=== PATIENT | male | born 1950 | race Caucasian/White ===

== ENCOUNTER → 2021-05-09 | Emergency (ER) | payer MEDICARE, MEDICAID ==
[~2021-05-09] VITALS: Ht 144.8 cm; Wt 46.8 kg
[~2021-05-09] MED LIST: ACET-1995 PO; ALBU2.5V13 NEB; ASCO-100 PO; CALC-157 PO; CEPH250T PO; CRAN450T4 PO; CefTRIAXone/D5W-Rocephin 1gm 50 ML IV ONE; DIPH25TA62 PO; DOCU250C96 PO; ERGO400C PO; ERYT1OIN6 RIGHTEYE; LACT1CAP65 PO; LISI2.5T14 PO; LORA-657 PO; MELA5TAB21 PO; METH1TAB32 PO; MULT-1085 PO; dextrose 5%-1/2 normal saline 1,000 ML IV ONE; normal saline 1000ML IV soln IVB ONE
[2021-05-09 13:15] LABS: BASOPHILS % (AUTO) 0.2 % (0-1); EOSINOPHILS # (AUTO) 0.1 X10'3 (0-0.9); EOSINOPHILS % (AUTO) 1.2 % (0-6); HEMATOCRIT 44.2 % (42.0-52.0); HEMOGLOBIN 14.6 g/dl (14.0-17.9); LYMPHOCYTES # (AUTO) 1.3 X10'3 (1.1-4.8); LYMPHOCYTES % (AUTO) 15.9 % (21-51); MEAN CORPUSCULAR HEMOGLOBIN 31.3 PG (27.0-31.0); MEAN CORPUSCULAR HGB CONC 33.1 g/dL (33.0-36.5); MEAN CORPUSCULAR VOLUME 94.5 FL (78-98); MEAN PLATELET VOLUME 7.5 FL (7.4-10.4); MONOCYTES # (AUTO) 0.7 X10'3 (0-0.9); NEUTROPHILS % (AUTO) 73.7 % (42-75); PLATELET COUNT 195 X10'3 (140-440); RED BLOOD COUNT 4.68 X10'6 (4.70-6.10); RED CELL DISTRIBUTION WIDTH 12.9 % (11.5-14.5); WHITE BLOOD COUNT 8.1 X10'3 (4.5-11.0)
[2021-05-09 13:35] LABS: ALANINE AMINOTRANSFERASE 28 U/L (12-78); ALBUMIN 3.5 G/DL (3.4-5.0); ALKALINE PHOSPHATASE 72 IU/L (46-116); ANION GAP 9 (8-16); ASPARTATE AMINO TRANSFERASE 24 U/L (10-37); BILIRUBIN,TOTAL 0.5 MG/DL (0.1-1.0); BLOOD UREA NITROGEN 42 MG/DL (7-18); BUN/CREATININE RATIO 29.2 (5.4-32.0); CALCIUM 9.6 MG/DL (8.5-10.1); CHLORIDE 114 MMOL/L (99-107); CREATININE 1.44 MG/DL (0.60-1.10); GLUCOSE 107 MG/DL (70-104); POTASSIUM 3.9 MMOL/L (3.5-5.1); SODIUM 150 MMOL/L (135-145); TOTAL CARBON DIOXIDE 27.4 MMOL/L (24-32); eGFR 49 ML/MIN
--- NOTE | 2021-05-09 15:02 | NUR ---
minimal urine output. suprapubic catheter adjusted, no urine outflow. 1L NS bolus given, still no urine output. bladder scan notes 67ml. one drop of cloudy urine noted. alejandra jeffers aware.
[2021-05-09 16:31] LABS: CLARITY,URINE CLOUDY (Clear); COLOR,URINE YELLOW (Yellow); GLUCOSE, URINE NEGATIVE (Neg); KETONES,URINE NEGATIVE (Neg); LEUKOCYTE ESTERASE ,URINE LARGE (Neg); NITRITES, URINE POSITIVE (Neg); OCCULT BLOOD,URINE MODERATE (Neg); PROTEIN,URINE 100 mg/dl (Neg); UROBILINOGEN,URINE 0.2 E.U/dL (0.2-1.0)
[2021-05-09 16:33] LABS: UA COLLECTION TYPE SUPRAPUBIC CATH
[2021-05-09 16:39] LABS: BACTERIA,URINE 4+ /HPF (Neg); SQUAMOUS EPITHELIAL CELL,UR MODERATE /LPF (FEW)
[2021-05-09 17:26] VITALS: BP 96/62
== END | disposition home or self-care (01) ==
LOC: ER 11:38
DX: N39.0 Urinary tract infection, site not specified (principal); R40.4 Transient alteration of awareness; Z87.440 Personal history of urinary (tract) infections; Z79.2 Long term (current) use of antibiotics; Z79.899 Other long term (current) drug therapy
CPT/HCPCS: 36415; 70450; 71045; 80053; 81001; 85025; 87077; 87088; 87186; 93005; 96361; 96365; 99285; J0696; J7030

== ENCOUNTER 2021-08-29 10:14 | Emergency (ER) | payer MEDICARE, MEDICAID ==
[~2021-08-29] VITALS: Ht 144.8 cm; Wt 45.0 kg
[~2021-08-29 10:14] MED LIST changes: +CEFD300C3 PO; -CEPH250T PO; -CefTRIAXone/D5W-Rocephin 1gm 50 ML IV ONE; -LORA-657 PO; +LORA10TA7 PO; +MELA5CAP PO; -MELA5TAB21 PO; -dextrose 5%-1/2 normal saline 1,000 ML IV ONE; -normal saline 1000ML IV soln IVB ONE
[2021-08-29] MEDS ORDERED: normal saline 1000ML IV soln IVB ONE (11:20)
[2021-08-29 11:34] LABS: BASOPHILS % (AUTO) 0.3 % (0-1); EOSINOPHILS # (AUTO) 0.2 X10'3 (0-0.9); EOSINOPHILS % (AUTO) 2.4 % (0-6); HEMATOCRIT 42.6 % (42.0-52.0); HEMOGLOBIN 14.5 g/dl (14.0-17.9); LYMPHOCYTES # (AUTO) 1.4 X10'3 (1.1-4.8); LYMPHOCYTES % (AUTO) 20.1 % (21-51); MEAN CORPUSCULAR HEMOGLOBIN 31.4 PG (27.0-31.0); MEAN CORPUSCULAR VOLUME 92.4 FL (78-98); MEAN PLATELET VOLUME 7.2 FL (7.4-10.4); MONOCYTES # (AUTO) 0.5 X10'3 (0-0.9); MONOCYTES % (AUTO) 7.7 % (2-12); NEUTROPHILS # (AUTO) 4.8 X10'3 (1.8-7.7); NEUTROPHILS % (AUTO) 69.5 % (42-75); PLATELET COUNT 317 X10'3 (140-440); RED BLOOD COUNT 4.61 X10'6 (4.70-6.10); RED CELL DISTRIBUTION WIDTH 13.2 % (11.5-14.5); WHITE BLOOD COUNT 6.9 X10'3 (4.5-11.0)
[2021-08-29 11:47] LABS: PARTIAL THROMBOPLASTIN TIME 25 SECONDS (22-32)
[2021-08-29 11:50] LABS: ALANINE AMINOTRANSFERASE 28 U/L (12-78); ALBUMIN 3.1 G/DL (3.4-5.0); ALBUMIN/GLOBULIN RATIO 0.7 (1.1-1.5); ALKALINE PHOSPHATASE 80 IU/L (46-116); ANION GAP 10 (8-16); ASPARTATE AMINO TRANSFERASE 16 U/L (10-37); BILIRUBIN,TOTAL 0.4 MG/DL (0.1-1.0); BLOOD UREA NITROGEN 52 MG/DL (7-18); BUN/CREATININE RATIO 27.8 (5.4-32.0); CALCIUM 10.6 MG/DL (8.5-10.1); CHLORIDE 108 MMOL/L (99-107); CREATININE 1.87 MG/DL (0.60-1.10); GLUCOSE 95 MG/DL (70-104); POTASSIUM 4.6 MMOL/L (3.5-5.1); SODIUM 148 MMOL/L (135-145); TOTAL CARBON DIOXIDE 30.2 MMOL/L (24-32); TOTAL PROTEIN 7.4 G/DL (6.4-8.2); eGFR 36 ML/MIN
[2021-08-29 11:59] LABS: MAGNESIUM 2.6 MG/DL (1.5-2.4)
[2021-08-29 13:10] LABS: C-REACTIVE PROTEIN 2.21 MG/DL (0.0-0.5); FERRITIN 207 NG/ML (26-388); LACTATE DEHYDROGENASE 241 U/L (85-227)
[2021-08-29 15:05] VITALS: BP 105/63
== END 2021-08-29 13:35 | disposition home or self-care (01) ==
LOC: ER 10:14
DX: G80.9 Cerebral palsy, unspecified (principal); Z20.822 Contact with and (suspected) exposure to COVID-19; R00.0 Tachycardia, unspecified; N18.9 Chronic kidney disease, unspecified; Z87.440 Personal history of urinary (tract) infections; Z79.2 Long term (current) use of antibiotics; Z79.899 Other long term (current) drug therapy
CPT/HCPCS: 36415; 71045; 80053; 82728; 83615; 83735; 83880; 84145; 84443; 84484; 85025; 85379; 85384; 85610; 85730; 86140; 87635; 93005; 96360; 99285; C9803; J7030

== ENCOUNTER 2022-02-05 12:50 | Outpatient (CLI) | payer MEDICARE, MEDICAID ==
[~2022-02-05 12:50] MED LIST changes: -CEFD300C3 PO
== END 2022-02-05 23:59 | disposition home or self-care (01) ==
LOC: CARD DIAG 12:50
PROVIDERS: ATTEND Internal Medicine Cardiovascular Disease
DX: I08.0 Rheumatic disorders of both mitral and aortic valves (principal); I11.9 Hypertensive heart disease without heart failure
CPT/HCPCS: 93306

== ENCOUNTER 2022-05-21 23:33 | Emergency (ER) | payer MEDICARE, MEDICAID ==
[~2022-05-21] VITALS: Ht 129.5 cm; Wt 42.4 kg
[2022-05-21 23:39] VITALS: BP 122/76
[2022-05-22 00:51] LABS: CLARITY,URINE CLOUDY (Clear); COLOR,URINE YELLOW (Yellow); GLUCOSE, URINE NEGATIVE (Neg); KETONES,URINE NEGATIVE (Neg); LEUKOCYTE ESTERASE ,URINE LARGE (Neg); NITRITES, URINE POSITIVE (Neg); OCCULT BLOOD,URINE LARGE (Neg); PH,URINE 6.5 (4.8-8.0); PROTEIN,URINE 100 mg/dl (Neg); UROBILINOGEN,URINE 0.2 E.U/dL (0.2-1.0)
[2022-05-22 00:56] LABS: UA COLLECTION TYPE NON-SPECIFIED
[2022-05-22 00:58] LABS: BACTERIA,URINE 2+ /HPF (Neg); MUCUS STRANDS NONE SEEN /LPF (Neg); RBC,URINE TNTC /HPF (0-2); SQUAMOUS EPITHELIAL CELL,UR NONE SEEN /LPF (FEW); WBC,URINE TNTC /HPF (0-4)
[2022-05-22 00:59] LABS: EOSINOPHILS # (AUTO) 0.2 X10'3 (0-0.9); HEMOGLOBIN 14.5 g/dl (14.0-17.9); LYMPHOCYTES # (AUTO) 1.7 X10'3 (1.1-4.8); MEAN CORPUSCULAR HEMOGLOBIN 31.4 PG (27.0-31.0); MEAN CORPUSCULAR VOLUME 92.3 FL (78-98); MONOCYTES # (AUTO) 0.6 X10'3 (0-0.9); RED CELL DISTRIBUTION WIDTH 12.6 % (11.5-14.5); WHITE BLOOD COUNT 5.9 X10'3 (4.5-11.0)
[2022-05-22 01:01] LABS: BASOPHILS % (AUTO) 0.2 % (0-1); EOSINOPHILS % (AUTO) 3.2 % (0-6); HEMATOCRIT 42.6 % (42.0-52.0); LYMPHOCYTES % (AUTO) 29.5 % (21-51); MEAN PLATELET VOLUME 7.6 FL (7.4-10.4); MONOCYTES % (AUTO) 10.7 % (2-12); NEUTROPHILS # (AUTO) 3.3 X10'3 (1.8-7.7); NEUTROPHILS % (AUTO) 56.4 % (42-75); PLATELET COUNT 172 X10'3 (140-440); RED BLOOD COUNT 4.62 X10'6 (4.70-6.10)
[2022-05-22 01:29] LABS: ALANINE AMINOTRANSFERASE 18 U/L (12-78); ALBUMIN 3.4 G/DL (3.4-5.0); ALKALINE PHOSPHATASE 85 IU/L (46-116); ANION GAP 5 (8-16); ASPARTATE AMINO TRANSFERASE 14 U/L (10-37); BILIRUBIN,TOTAL 0.3 MG/DL (0.1-1.0); BLOOD UREA NITROGEN 46 MG/DL (7-18); CALCIUM 9.9 MG/DL (8.5-10.1); CHLORIDE 105 MMOL/L (99-107); CREATININE 1.64 MG/DL (0.60-1.10); GLUCOSE 108 MG/DL (70-104); POTASSIUM 4.4 MMOL/L (3.5-5.1); SODIUM 143 MMOL/L (135-145); TOTAL CARBON DIOXIDE 32.9 MMOL/L (24-32); TOTAL PROTEIN 6.8 G/DL (6.4-8.2); eGFR 42 ML/MIN
[2022-05-22] MEDS ORDERED: ondansetron 4mg rapidly disintigrating tab PO ONE (01:35)
[2022-05-22] MEDS ORDERED: ciprofloxacin 250mg tablet PO ONE (01:35)
[2022-05-22] MEDS ORDERED: CIPR-202 PO (01:36)
== END 2022-05-22 02:00 | disposition home or self-care (01) ==
LOC: ER 23:34
DX: T83.511A Infection and inflammatory reaction due to indwelling urethral catheter, initial encounter (principal); N39.0 Urinary tract infection, site not specified; R31.9 Hematuria, unspecified; G80.9 Cerebral palsy, unspecified; Z99.3 Dependence on wheelchair; N18.9 Chronic kidney disease, unspecified; Z87.440 Personal history of urinary (tract) infections; Z79.899 Other long term (current) drug therapy; Z79.2 Long term (current) use of antibiotics
CPT/HCPCS: 36415; 80053; 81001; 85025; 87077; 87088; 87186; 99284

== ENCOUNTER 2024-02-15 17:38 | Emergency (ER) | payer MEDICARE, MEDICAID ==
[~2024-02-15 17:38] MED LIST changes: +DOCU-395 PO; -DOCU250C96 PO
[2024-02-15] MEDS ORDERED: AMOX-117 PO (18:09)
[2024-02-15] MEDS: amox tr/clav. pot 400mg/5ml 100ml suspension PO STA (19:02)
[2024-02-15 19:07] VITALS: BP 140/92; PULSE 110; RESP 16; TEMP 98.2; O2SAT 97
== END 2024-02-15 19:05 | disposition home or self-care (01) ==
LOC: ER 17:39
DX: L03.012 Cellulitis of left finger (principal); N18.9 Chronic kidney disease, unspecified; Z79.1 Long term (current) use of non-steroidal anti-inflammatories (NSAID); Z79.2 Long term (current) use of antibiotics; Z79.899 Other long term (current) drug therapy
CPT/HCPCS: 10060; 99284; A6449